=== PATIENT | male | born 1960 | race Caucasian/White ===

== ENCOUNTER 2024-12-12 13:10 | Emergency (ER) | payer MEDICARE, MEDICAID ==
[~2024-12-12] VITALS: Ht 172.7 cm; Wt 87.1 kg
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
[2024-12-12 14:42] VITALS: BP 139/98
== END 2024-12-12 14:43 | disposition home or self-care (01) ==
LOC: ED 13:10
DX: S61.402A Unspecified open wound of left hand, initial encounter (principal); X58.XXXA Exposure to other specified factors, initial encounter; Z88.5 Allergy status to narcotic agent
CPT/HCPCS: 99282